=== PATIENT | male | born 2000 | race African-American/Black ===

== ENCOUNTER 2024-03-30 12:11 | Emergency (ER) | payer MEDICAID ==
[~2024-03-30] VITALS: Ht 175.3 cm; Wt 65.0 kg
[2024-03-30 12:14] VITALS: O2SAT 98
[2024-03-30] MEDS: TETANUS, DIPHTHERIA, PERTUSSIS VAC/PF 0.5ML (>10YR OLD) IM ONE (12:35)
[2024-03-30] MEDS: ACETAMINOPHEN 325MG TABLET PO ONE (12:36)
[2024-03-30 12:44] LABS: BASOPHILS % 0.6 % (0.0-2.0); EOSINOPHILS % 2.7 % (0.0-5.0); HEMATOCRIT. 45.7 % (42.0-52.0); HEMOGLOBIN. 15.8 g/dL (14.0-18.0); LYMPHOCYTES % 25.5 % (20.0-50.0); MEAN CORPUSCULAR HEMOGLOBIN 31.5 pg (28.0-32.0); MEAN CORPUSCULAR HGB CONC 34.6 g/dL (31.0-37.0); MEAN CORPUSCULAR VOLUME 91.1 fL (80.0-94.0); MEAN PLATELET VOLUME 8.1 fl (7.4-10.4); MONOCYTES % 9.1 % (2.0-8.0); NEUTROPHILS % 62.1 % (40.0-76.0); PLATELET 251 x1000/uL (130-400); RED BLOOD CELL COUNT 5.02 mill/uL (4.7-6.1); RED CELL DISTRIBUTION WIDTH 12.4 % (11.6-14.6); WHITE BLOOD COUNT 6.6 x1000/uL (4.5-11.0)
[2024-03-30 12:50] LABS: CARBON DIOXIDE 28 mEq/L (21-32); CHLORIDE 104 mEq/L (98-107); POTASSIUM 3.6 mEq/L (3.5-5.1); SODIUM 141 mEq/L (136-145)
[2024-03-30 12:51] LABS: CALCIUM 10.8 mg/dL (8.7-10.4)
[2024-03-30 12:56] LABS: CREATININE 1.1 mg/dL (0.6-1.3); GLUCOSE 111 mg/dL (70-105); UREA NITROGEN BLOOD 9 mg/dL (9-23)
[2024-03-30 12:58] LABS: ALANINE AMINOTRANSFERASE 17 IU/L (10-49); ALBUMIN 5.4 g/dL (3.2-4.8); ASPARTATE AMINOTRANSFERASE 28 IU/L (<34); BILIRUBIN TOTAL 0.6 mg/dL (0.1-1.0); PROTEIN TOTAL 8.8 g/dL (6.0-8.3)
[2024-03-30] MEDS: IBUPROFEN 600MG TABLET PO ONE (13:00)
[2024-03-30] MEDS: LIDOCAINE HCL 1% 20ML VIAL INFIL ONE (13:46)
[2024-03-30] MEDS ORDERED: IOHEXOL-300 100 ML BOTTLE ONE (14:44)
[2024-03-30 15:00] VITALS: BP 123/72; PULSE 72; RESP 20; TEMP 36.89184; O2SAT 98
== END 2024-03-30 15:00 | disposition home or self-care (01) ==
LOC: ER 12:11
DX: S31.119A Laceration without foreign body of abdominal wall, unspecified quadrant without penetration into peritoneal cavity, initial encounter (principal); X58.XXXA Exposure to other specified factors, initial encounter; Y93.89 Activity, other specified; Y92.89 Other specified places as the place of occurrence of the external cause; Y99.8 Other external cause status
CPT/HCPCS: 80053; 85025; 36415; 71045; 71260; 74177; 90715; 12002; 90471; 99285; Q9967; J3490; Z7610 ×2